=== PATIENT | female | born 1960 | race Caucasian/White ===

== ENCOUNTER 2023-06-22 22:28 | Emergency (ER) | payer BC ==
[~2023-06-22] VITALS: Ht 170.2 cm; Wt 68.2 kg
[2023-06-22] MEDS ORDERED: Insulin Aspart (NovoLOG) SQ ONE (23:00)
[2023-06-22 23:14] VITALS: BP 118/71; PULSE 75; TEMP 98
== END 2023-06-22 23:22 | disposition home or self-care (01) ==
LOC: COL.ER 22:28
DX: E10.65 Type 1 diabetes mellitus with hyperglycemia (principal); Z96.41 Presence of insulin pump (external) (internal)
CPT/HCPCS: J1815